=== PATIENT | male | born 1985 | race Two or more races ===

== ENCOUNTER 2025-02-04 21:48 | Emergency (ER) | payer MEDICAID, OTHER, SELFPAY ==
[~2025-02-04] VITALS: Ht 182.9 cm; Wt 95.4 kg
--- NOTE | 2025-02-04 22:44 | DVH ---
AundefinedCCESSION #: [id number] EXAMINATION: XY L RIB X RAY INDICATION: left rib pain COMPARISON: None FINDINGS: No focal consolidation, pleural effusion or significant pneumothorax. Nonenlarged cardiomediastinal silhouette. No displaced left rib fracture. IMPRESSION: No displaced left rib fracture.
[2025-02-04] MEDS ORDERED: IBUP-1456 PO (23:46)
--- NOTE | 2025-02-04 23:46 | ED.PDOC ---
Back pain HPI HPI Comments 40-year-old male presents to ER with complaints of left posterior rib pain x3 days. Patient reports that he started experiencing left posterior rib pain three days ago while grocery shopping. He rates his current pain a 6/10 to left posterior ribcage without radiation. Denies use of medications for current symptoms and presents to ER ambulatory on arrival, with steady gait, in no distress. States he does have history of a left posterior rib fracture "12 years ago". Denies chest pain, shortness of breath, n/v, back pain, abdominal pain or any further symptoms/complaints Chief Complaint: Rib Pain Time Seen by MD: 22:03 Primary Care Provider: UNKNOWN Reviewed Notes: Nurses Notes, Medications, Allergies Allergies: Coded Allergies: NO KNOWN ALLERGIES (Unverified , 02/04/25) Home Meds Active Scripts Ibuprofen (Ibuprofen) 800 Mg Tab, 1 TAB PO TID PRN, #30 TAB 0 Refills Prov:KALIMARCIA ACEVEDO 02/04/25 Information Source: Patient Mode of Arrival: Ambulatory Past Medical History Past Medical History (Other): Left rib fracture Surgical History: Denies all surgeries Family History Family History: Unknown Social History Smoker: Non-Smoker Alcohol: Denies ETOH Use Drugs: Denies Drug Use Lives In: Home Constitutional: denies: chills, diaphoresis, fatigue, fever, malaise, sweats, weakness, others EENTM: denies: blurred vision, double vision, ear bleeding, ear discharge, ear drainage, ear pain, ear ringing, eye pain, eye redness, hearing loss, mouth pain, mouth swelling, nasal discharge, nose bleeding, nose congestion, nose pain, photophobia, tearing, throat pain, throat swelling, voice changes, others Respiratory: denies: cough, hemoptysis, orthopnea, SOB at rest, shortness of breath, SOB with excertion, stridor, wheezing, others Cardiovascular: denies: chest pain, dizzy spells, diaphoresis, Dyspnea on exertion, edema, irregular heart beat, left arm pain, lightheadedness, palpitations, PND, syncope, others Gastrointestinal: denies: abdomen distended, abdominal pain, blood streaked bowels, constipated, diarrhea, dysphagia, difficulty swallowing, hematemesis, melena, nausea, poor appetite, poor fluid intake, rectal bleeding, rectal pain, vomiting, others Genitourinary: denies: burning, dysuria, flank pain, frequency, hematuria, incontinence, penile discharge, penile sore, pain, testicle pain, testicle swelling, urgency, others Neurological: denies: dizziness, fainting, headache, left sided numbness, left sided weakness, numbness, paresthesia, pre-existing deficit, right sided numbness, right sided weakness, seizure, speech problems, tingling, tremors, weakness, others Musculoskeletal: reports: others (As stated in HPI) Integumetry: denies: bruises, change in color, change in hair/nails, dryness, laceration, lesions, lumps, rash, wounds, others Allergic/Immunocompromised: denies: Difficulty Healing, Frequent Infections, Hives, Itching, others Hematologic/Lymphatic: denies: anemia, blood clots, easy bleeding, easy bruising, swollen glands, others Endocrine: denies: excessive hunger, excessive sweating, excessive thirst, excessive urination, flushing, intolerance to cold, intolerance to heat, unexplained weight gain, unexplained weight loss, others Psychiatric: denies: anxiety, bipolar disorder, depression, hopeless, panic disorder, schizophrenia, sleepless, suicidal, others Physical Exam General Appearance: No Apparent Distress HEENT: PERRL/EOMI Neck: Full Range of Motion, Non-Tender, Normal Respiratory: Lungs Clear, No Accessory Muscle Use, No Respiratory Distress, Normal Breath Sounds, Other (Slight TTP to left lower posterior ribcage noted. No crepitus or skin changes noted) Cardiovascular: No Murmur, No Gallop, Regular Rate/Rhythm Breast Exam: Deferred Gastrointestinal: Non Tender, No Pulsatile Mass, Soft Genitalia: Deferred Pelvic: Deferred Rectal: Deferred Extremities: Normal capillary refill, Normal range of motion Neurologic: Alert, No Motor Deficits, Normal Affect, Normal Mood, No Sensory Deficits Cerebellar Function: Normal Reflexes: Normal Skin: Dry, Normal Color, Warm Peripheral Pulses: 2+ Radial (R), 2+ Radial (L), 2+ Brachial (R), 2+ Brachial (L) Lymphatic: No Adenopathy Was a procedure done? Was a procedure done?: No Sedation Sedation?: No Back Pain Differential Dx Differential Diagnosis: AAA, Fracture, Other (Pneumothorax, IA) X-Ray, Labs, Meds, VS Vital Signs Date Time Temp Pulse Resp B/P (MAP) Pulse Ox O2 Delivery O2 Flow Rate FiO2 02/04/25 21:57 97.8 95 16 126/96 97 97.8 PATIENT: ANANYA NGOT: [id number]: [id number] : 1985 LOC: ER ROOM / BED: / AGE / SEX: 40 / M ADM STATUS: REG ER SERVICE 02 ORDERING PHYSICIAN: MARCIA BASS PROCEDURE(s): LRIBS - L RIB X RAY REASON: left rib pain ORDER NUMBER(s): [id number], ACCESSION NUMBER(s): [id number] AundefinedCCESSION #: [id number] EXAMINATION: XY L RIB X RAY INDICATION: left rib pain COMPARISON: None FINDINGS: No focal consolidation, pleural effusion or significant pneumothorax. Nonenlarged cardiomediastinal silhouette. No displaced left rib fracture. IMPRESSION: No displaced left rib fracture. ATED BY: CHARLIE DUNHAM MD DICTATED DATE/TIME: 02/04/252240 SIGNED BY: CHARLIE DUNHAM MD SIGNED DATE/TIME: 02/04/252240 CC: Left rib x-ray reviewed Toradol 60 mg IM ordered Advised on rest/no strenuous activity Advised to follow up with PCP in 1-2 days Patient verbalized understanding and agreeable with current plan of care Advised to return to ER immediately if symptoms worsen Images Reviewed?: Images reviewed and evaluated by me Time of 1ST Reevaluation: 23:20 Reevaluation 1ST: N/A Patient Education/Counseling: Diagnosis, Treatment, Prognosis, Need For Follow Up Family Education/Counseling: No Family Present SEPSIS Sepsis Screen Date sepsis recognized/suspect: Feb 04, 2025 Time Sepsis recognized/suspect: 2200 Recent Procedure: No On Antibiotic Therapy: No Respiratory Rate >20: No Heart Rate >90: No Temp<36 C (96.8 F) or >38.3 C: No SBP <90 or MAP <65 mmHG: No New Acute Mental Status Change: No Is the patient on CPAP, BIPAP,: No Physician Orders L Rib X Ray (02/04/25 22:03) Ketorolac Injection (Toradol Injection) (02/05/25 00:00) Vital Signs Date Time Temp Pulse Resp B/P (MAP) Pulse Ox O2 Delivery O2 Flow Rate FiO2 02/04/25 21:57 97.8 95 16 126/96 97 97.8 Departure 1 Departure Time of Disposition: 23:45 Impression: Primary Impression: Sprain, ribs Qualified Codes: S23.41XA - Sprain of ribs, initial encounter Disposition: HOME / SELF CARE / HOMELESS Condition: Stable e-Prescriptions Ibuprofen (Ibuprofen) 800 Mg Tab 1 TAB PO TID PRN, #30 TAB 0 Refills Prov: MARCIA BASS 02/04/25 Discharged With: Self Critical Care Note Critical Care Time?: No Stability Stability form required: No Heart Score Heart Score: Heart Score Response (Comments) Value History N/A 0 EKG N/A 0 Age N/A 0 Risk Factors N/A 0 Troponin N/A 0 Total 0 MARCIA BASS Feb 04, 2025 23:46
[2025-02-05 00:12] VITALS: BP 125/87; PULSE 93; RESP 16; TEMP 98; O2SAT 97
[2025-02-05] MEDS: KETOROLAC TROMETH 60MG/2ML VIAL IM ONE (00:12)
== END 2025-02-05 00:21 | disposition home or self-care (01) ==
LOC: ER 21:48
DX: S23.41XA Sprain of ribs, initial encounter (principal); X58.XXXA Exposure to other specified factors, initial encounter; Y93.89 Activity, other specified; Y92.89 Other specified places as the place of occurrence of the external cause; Y99.8 Other external cause status
CPT/HCPCS: 71101; 96372; 99283; J1885